=== PATIENT | female | born 1980 | race Caucasian/White ===

== ENCOUNTER 2016-11-02 11:29 | Emergency (ER) | payer BC, OTHER ==
[2016-11-02 11:49] VITALS: RESP 16
[2016-11-02] MEDS ORDERED: DIPH,PERTUS(ACELL)TETVAC-LF 0.5 ML VIAL IM ONE (12:11)
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
[2016-11-02 13:59] LABS: ALT 54 U/L (9-52); AST 29 U/L (14-36); Alkaline Phosphatase 63 U/L (38-126); Anion Gap 10 mmol/L; Blood Urea Nitrogen 11 mg/dL (7-17); Calcium 9.7 mg/dL (8.4-10.2); Carbon Dioxide 28 mmol/L (22-30); Chloride 107 mmol/L (98-107); Glucose 85 mg/dL (74-99); Non-African American GFR(MDRD) >60 (>60 ml/min/1.73 sqM); Potassium 4.1 mmol/L (3.5-5.1); Sodium 145 mmol/L (137-145); Total Bilirubin 0.6 mg/dL (0.2-1.3); Total Protein 7.2 g/dL (6.3-8.2)
[2016-11-02 14:23] VITALS: BP 117/56; PULSE 64; TEMP 98.2
[2016-11-02 15:45] LABS: Hepatitis C Virus IgG Index 0.02
[2016-11-02 15:52] LABS: Hepatitis B Surface Antibody POSITIVE (Negative); Hepatitis C Virus IgG Ab Negative (Negative)
[2016-11-03 13:51] LABS: HIV-1/HIV-2 Ab Screen NONREAC (NON REAC)
== END 2016-11-02 14:29 | disposition home or self-care (01) ==
LOC: EC 11:29
DX: S51.852A Open bite of left forearm, initial encounter (principal); E78.5 Hyperlipidemia, unspecified; F17.200 Nicotine dependence, unspecified, uncomplicated; Y04.1XXA Assault by human bite, initial encounter; Y99.0 Civilian activity done for income or pay; Z88.0 Allergy status to penicillin; Z79.899 Other long term (current) drug therapy; Z88.2 Allergy status to sulfonamides; Z23 Encounter for immunization
CPT/HCPCS: 36415; 80053; 86706; 86803; 87389; 90471; 90715; 99283

== ENCOUNTER → 2018-01-29 | Outpatient (CLI) | payer OTHER ==
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
== END | disposition home or self-care (01) ==
LOC: RADXRMAIN 17:08
PROVIDERS: ATTEND Emergency Medicine
DX: S60.221A Contusion of right hand, initial encounter (principal); S60.211A Contusion of right wrist, initial encounter

== ENCOUNTER → 2018-04-28 | Outpatient (CLI) | payer OTHER ==
--- NOTE | 2018-04-29 08:31 | CT ---
EXAMINATION TYPE: CT abdomen pelvis wo con DATE OF EXAM: 04/28/2018 COMPARISON: 11/06/2010 HISTORY: Abdominal pain with intermittent porphyria. Rectal bleeding. CT DLP: 329.8 mGycm Automated exposure control for dose reduction was used. TECHNIQUE: Helical acquisition of images was performed from the lung bases through the pelvis. FINDINGS: LUNG BASES: No significant abnormality is appreciated. LIVER/GB: No significant abnormality is appreciated. PANCREAS: Pancreas is of unremarkable unenhanced morphology without ductal dilatation. SPLEEN: No splenomegaly. ADRENALS: No nodularity or thickening. KIDNEYS: Kidneys are symmetric with no evidence of nephrolithiasis or hydronephrosis. No perinephric fat stranding. FREE AIR: No free air is visualized RETROPERITONEAL ADENOPATHY: No greater than 1 cm short axis lymph nodes are seen within the abdomen or pelvis. REPRODUCTIVE ORGANS: Uterus appears surgically absent. Previously seen right adnexal cystic mass is r esolved in the interim and likely related at that time to a physiologic cyst. URINARY BLADDER: No significant abnormality is seen. OSSEOUS STRUCTURES: Osseous structures are intact with a stable left hemipelvic bone island in ana rison to exam of 2010. BOWEL: No larger small bowel dilatation. Lack of oral contrast limits evaluation of the hollow visce ra. Moderate amount retained colonic stool is noted. Appendix appears surgically absent. OTHER: Abdominal aorta is of normal course and caliber. IMPRESSION: 1. No evidence of dilated bowel or bowel obstruction. Unremarkable unenhanced CT of the abdomen. Lack of oral contrast slightly limits evaluation of the bowel. Given the patient's complain of rectal ble eding colonoscopy could be performed if not recently performed. 2. Resolution of the previously seen cystic right adnexal lesion in comparison to the exam of 2010.
== END | disposition home or self-care (01) ==
LOC: EDSEX → MERGE 04-23 15:20 → RADCTMAIN 15:25
PROVIDERS: ATTEND Family Medicine
DX: K62.5 Hemorrhage of anus and rectum (principal); E80.21 Acute intermittent (hepatic) porphyria
CPT/HCPCS: 74176

== ENCOUNTER 2018-06-30 15:25 | Emergency (ER) | payer OTHER ==
[2018-06-30 15:51] VITALS: RESP 18
--- NOTE | 2018-06-30 16:44 | ED ---
Headache HPI - General Chief Complaint: Headache Stated Complaint: migraine/vomiting Time Seen by Provider: 06/30/18 16:26 Mode of arrival: ambulatory Limitations: no limitations - History of Present Illness Initial Comments: 29-year-old female with past medical history of chronic migraines and anxiety presenting today for chief complaint of migraine, nausea or vomiting 2 hours. Patient states that around 2 PM she began to notice she had a migraine starting. She states it was consistent with her past migraines. Throbbing frontal, 05/09. She denies this being the worst headache of her life. Patient states that since arrival to ER it actually has been getting better. Patient does admit to episode of emesis, however she states she often experiences the symptom with her migraines. Patient state that she did have a negative MRI for any aneurysms years ago. And a CT 2 months ago that was within normal limits. Patient states that she has been out of her Topamax that she takes for migraine prophylaxis for the past 2 days. Pt did state that she was had the flu about a week ago and a fever but denies recent fever, chills. Patient denies any speech or gait changes, difficulty swallowing, facial symmetry, paresthesias, numbness or tingling of the upper or lower extremities, muscle weakness of the upper or lower extremities. In addition pt denies any shortness of breath, chest pain, back pain, abdominal pain, numbness or tingling, dysuria or hematuria, constipation or diarrhea, headaches or visual changes, or any other complaints. Pt was brought to the ER by her mother. Upon arrival pt VS stable. - Related Data Home Medications Medication Instructions Recorded Confirmed Escitalopram Oxalate [Lexapro] 20 mg PO DAILY 11/02/16 06/30/18 Azithromycin [Zithromax Z-pack] See Taper PO DAILY 06/30/18 06/30/18 Ibuprofen [Motrin Ib] 800 mg PO Q6H 06/30/18 06/30/18 Topiramate [Topamax] 100 mg PO HS 06/30/18 06/30/18 buPROPion XL [Wellbutrin Xl] 150 mg PO HS 06/30/18 06/30/18 Previous Rx's Medication Instructions Recorded Topiramate [Topamax] 100 mg PO BID 3 Days #6 tab 06/30/18 Allergies Allergy/AdvReac Type Severity Reaction Status Date / Time Penicillins Allergy Rash/Hives Verified 06/30/18 16:20 Sulfa (Sulfonamide Allergy Rash/Hives Verified 06/30/18 16:20 Antibiotics) Review of Systems ROS Statement: Those systems with pertinent positive or pertinent negative responses have been documented in the HPI. ROS Other: All systems not noted in ROS Statement are negative. Constitutional: Denies: fever, chills Eyes: Denies: eye pain, vision change ENT: Denies: ear pain, throat pain Respiratory: Denies: cough, dyspnea, wheezes, hemoptysis Cardiovascular: Denies: chest pain, palpitations Gastrointestinal: Reports: nausea, vomiting. Denies: abdominal pain, diarrhea, constipation, hematemesis, melena, hematochezia Genitourinary: Denies: urgency, dysuria, frequency, hematuria Musculoskeletal: Denies: back pain Skin: Denies: rash Neurological: Reports: as per HPI, headache. Denies: weakness, numbness, paresthesias, confusion, abnormal gait, vertigo Past Medical History Past Medical History: Asthma, Hyperlipidemia Additional Past Medical History / Comment(s): perforin History of Any Multi-Drug Resistant Organisms: None Reported Past Surgical History: Adenoidectomy, Appendectomy, Breast Surgery, Hysterectomy , Orthopedic Surgery, Tonsillectomy Additional Past Surgical History / Comment(s): sinus surgery Past Psychological History: No Psychological Hx Reported Smoking Status: Current every day smoker Past Alcohol Use History: None Reported Past Drug Use History: None Reported General Exam - General Exam Comments Initial Comments: General: The patient is awake and alert, in no distress, and does not appear acutely ill. Eye: +3 pupils are equal, round and reactive to light, extra-ocular movements are intact. No nystagmus. There is normal conjunctiva bilaterally. No signs of icterus. Ears, nose, mouth and throat: There are moist mucous membranes and no oral lesions. Cardiovascular: There is a regular rate and rhythm. No murmur, rub or gallop is appreciated. Respiratory: Lungs are clear to auscultation, respirations are non-labored, breath sounds are equal. No wheezes, stridor, rales, or rhonchi. Musculoskeletal: Normal ROM, no tenderness. Strength 5/5. Sensation intact. Pulses equal bilaterally 2+. Neurological: A&O x 3. CN II-XII intact, memory intact to immediately, intermediate and retirement recall. Able to follow simple verbal. Able to name a common object (pen). High quality, labial (pa) and lingual (la) speech. Low quality posterior pharynx/larynx (ga) voice sounds. Able to express general knowledge (days in a week). No hemineglect or inattention noted. Light touch sensation present over the face, chest, abdomen, back, UE bilaterally, and LE bilaterally. Able to localize point during point localization b/l and extinction. No visible bulk atrophy, hypertrophy, fasciculations, or myoclonus of the UE or LE b/l. Full PROM in UE and LE b/l. Bilateral muscle strength 5/5 for the following muscles: deltoid, biceps, triceps, brachioradialis, wrist extensors/flexor, hip flexor, hip abductors/adductors, hamstrings, quadriceps, feet dorsiflexors/plantar flexors. Finger to nose, finger to the examiners finger, and heel to sung coordinated and accurate b/l. Coordinated and even demonstration of hand flip, finger to thumb, and toe tap b/l. (-) pronator drift. No nuchal rigidity. (-) Brudzinskis and Kernig signs Skin: Skin is warm and dry and no rashes or lesions are noted. Psychiatric: Cooperative, appropriate mood & affect, normal judgment. Limitations: no limitations Course Vital Signs 06/30/18 06/30/18 15:48 17:37 Temperature 98.1 F 97.6 F Pulse Rate 71 96 Respiratory 18 18 Rate Blood Pressure 114/67 130/75 O2 Sat by Pulse 100 100 Oximetry Medical Decision Making - Medical Decision Making Pt afebrile. Given PE and HX i feel at this time pt is experiencing chronic migraine. Pt has been out of her topomax for 2 days which she usually takes for ppx. There are no focal neurological deficits upon neurological exam. Imaging discussed at length with patient at this time pt states that she feels this is another one of her chronic migraines and that she would like to defer imaging today. I have low suspicion for acute intracranial process or meningitis. Pt given reglan, bendadryl and toradol. Pt experienced anxiety after medication administration most likely from reglan administration. Pt given 1mg xanax. Pt upon reevaluation stated that although the medications made her feeling anxious her headache was significantly better. Pt was requesting d/c. Given pt has history of migraines with no history of aneurysm, there are no focal deficits one examination and improvement of HENDRICKSON of migraine cocktail I am feel pt is stable for d/c with primary care f/u. Return parameters were discussed with patient. Patient's mother is driving her home. Patient is given a prescription of 6 tablets Topamax retaken twice daily as prescribed previously until primary care follow-up. Patient agrees with plan, patient was discharged in stable condition. Disposition Clinical Impression: Migraine Disposition: HOME SELF-CARE Condition: Good Instructions: Acute Headache (ED) Additional Instructions: Please use medication as discussed. Please follow-up with family doctor in the next 2 days. Please return to emergency room if the symptoms increase or worsen or for any other concerns. Prescriptions: Topiramate [Topamax] 100 mg PO BID 3 Days #6 tab Is patient prescribed a controlled substance at d/c from ED?: No Referrals: Michael Patrick DO [Primary Care Provider] - 1-2 days Time of Disposition: 17:19
[2018-06-30] MEDS ORDERED: diphenhydrAMINE 50 MG/ML 1 ML VIAL IVP STA (16:45)
[2018-06-30] MEDS ORDERED: KETOROLAC 30 MG/ML 1 ML VIAL IVP STA (16:45)
[2018-06-30] MEDS ORDERED: METOCLOPRAMIDE 5 MG/ML 2 ML VIAL IVP STA (16:45)
[2018-06-30] MEDS ORDERED: ALPRAZolam 1 MG TAB PO STA (17:19)
[2018-06-30 17:39] VITALS: BP 130/75; PULSE 96; TEMP 97.6
== END 2018-06-30 17:40 | disposition home or self-care (01) ==
LOC: EC 15:25
DX: G43.909 Migraine, unspecified, not intractable, without status migrainosus (principal); F41.9 Anxiety disorder, unspecified; F17.200 Nicotine dependence, unspecified, uncomplicated; Z79.899 Other long term (current) drug therapy; Z79.891 Long term (current) use of opiate analgesic; Z88.0 Allergy status to penicillin; Z88.2 Allergy status to sulfonamides
CPT/HCPCS: 99283; 96374; 96375 ×2; J1200; J2765; J1885

== ENCOUNTER → 2018-12-19 | Outpatient (CLI) | payer BC, OTHER ==
--- NOTE | 2018-12-20 16:48 | US ---
EXAMINATION TYPE: US pelvic complete DATE OF EXAM: 12/19/2018 COMPARISON: CT abdomen and pelvis April 28, 2018 CLINICAL HISTORY: R10.2 Pelvic Pain. History of hysterectomy 2009. TECHNIQUE: . Transabdominal sonographic images of the pelvis were acquired. Transvaginal sonographi c images were medically necessary to better assess the following anatomy: Date of LMP: EXAM MEASUREMENTS: Uterus: Surgically absent Endometrial Stripe: Surgically absent Right Ovary: 1.7 x 1.2 x 1.2 cm Left Ovary: 1.7 x 1.9 x 1.5 cm 1. Uterus: Surgically absent 2. Endometrium: Surgically absent 3. Right Ovary: wnl 4. Left Ovary: wnl 5. Bilateral Adnexa: wnl 6. Posterior cul-de-sac: wnl Uterus is surgically absent. No free fluid is seen in pelvic cul-de-sac. Both ovaries are seen and ar e symmetric small in size. No suspicious adnexal masses are noted. IMPRESSION: As above, no suspicious findings seen to account for patient's symptoms of pelvic pain.
== END ==
LOC: RADUSWWP 16:13
PROVIDERS: ATTEND Internal Medicine
DX: R10.2 Pelvic and perineal pain (principal)
CPT/HCPCS: 76856

== ENCOUNTER → 2019-10-27 | Outpatient (CLI) | payer BC, OTHER ==
[2019-10-28 00:34] LABS: Rheumatoid Factor, Qnt 8 IU/mL (0-15)
[2019-10-28 07:00] LABS: Anti-Smith Ab Interp NEGATIVE (NEGATIVE); DNA Double-Stranded NEGATIVE (NEGATIVE)
[2019-10-28 09:30] LABS: Angiotensin-1 Converting Enz. 30 U/L (8-52)
[2019-10-28 14:13] LABS: C-ANCA <1:20 Titer (<1:20)
== END | disposition home or self-care (01) ==
LOC: LABWHC1 17:17
PROVIDERS: ATTEND Psychiatry & Neurology Neurology
DX: G43.019 Migraine without aura, intractable, without status migrainosus (principal); R41.3 Other amnesia; R20.2 Paresthesia of skin; G40.209 Localization-related (focal) (partial) symptomatic epilepsy and epileptic syndromes with complex partial seizures, not intractable, without status epilepticus; E55.9 Vitamin D deficiency, unspecified
CPT/HCPCS: 36415; 82164; 82306; 82607; 84443; 86038; 86225; 86235; 86255; 86431; 86618

== ENCOUNTER → 2021-01-04 | Outpatient (CLI) | payer BC, OTHER ==
[2021-01-04 23:21] LABS: HCT 39.6 % (37.2-46.3); HGB 12.7 g/dL (12.0-15.0); MCH 29.1 pg (27.0-32.0); MCHC 32.1 g/dL (32.0-37.0); MCV 90.8 fL (80.0-97.0); Mean Platelet Volume 11.3 fL (9.5-12.2); Platelet Count 314 X 10*3/uL (140-440); RBC 4.36 X 10*6/uL (4.10-5.20); RDW 12.6 % (11.5-14.5); WBC 7.68 X 10*3/uL (4.50-10.00)
[2021-01-05 03:28] LABS: Albumin 4.4 g/dL (3.80-4.90); Albumin/Globulin Ratio 2.32 (1.60-3.17); Anion Gap 7.6 mmol/L (4.00-12.00); Calcium 9.1 mg/dL (8.7-10.3); Carbon Dioxide 23.4 mmol/L (21.6-31.8); Chol/HDL Ratio 4.8; Globulin 1.9 g/dL (1.6-3.3); LDL Cholesterol,Calculated 144.4 mg/dL (0.0-131.0); Non-African American GFR(CKD) 69.9 (60.0-200.0); Potassium 4.1 mmol/L (3.5-5.5); Total Bilirubin 0.3 mg/dL (0.2-1.2); Total Protein 6.3 g/dL (6.2-8.2); VLDL Calculation 41.6 mg/dL (5.00-40.00)
== END | disposition home or self-care (01) ==
LOC: LABWHC1 15:17
PROVIDERS: ATTEND Internal Medicine Clinical Cardiac Electrophysiology
DX: E78.5 Hyperlipidemia, unspecified (principal); R07.9 Chest pain, unspecified; R00.2 Palpitations
CPT/HCPCS: 36415; 80053; 80061; 84443; 85027

== ENCOUNTER → 2021-06-22 | Outpatient (CLI) | payer BC, OTHER | END | disposition home or self-care (01) | LOC: LABWHC1 15:45 | PROVIDERS: ATTEND Internal Medicine | DX: Z20.822 Contact with and (suspected) exposure to COVID-19 (principal) | CPT/HCPCS: U0003; C9803; U0005 ==

== ENCOUNTER → 2021-07-13 | Outpatient (CLI) | payer BC ==
--- NOTE | 2021-07-14 06:34 | CT ---
EXAMINATION TYPE: CT abdomen pelvis w con DATE OF EXAM: 07/13/2021 HISTORY: epigastric pain. Left kidney mass or recent abnormal ultrasound. CT DLP: 547.3mGycm Automated Exposure Control for Dose Reduction was Utilized. CONTRAST: CT scan of the abdomen and pelvis is performed with IV Contrast, patient injected with 100 mL of Isov ue 300. COMPARISON: CT abdomen and pelvis June 23, 2020 and older CTs FINDINGS: LUNG BASES: No significant abnormality is appreciated. LIVER/GB: No significant abnormality is appreciated. PANCREAS: No significant abnormality is seen. SPLEEN: No significant abnormality is seen. ADRENALS: No significant abnormality is seen. KIDNEYS: There is symmetric cortical medullary uptake and excretion with mild pyelocaliectasis bilate rally. No concerning solid or cystic renal mass in either kidney. No significant distal hydroureter. BOWEL: Oral contrast does not reach terminal ileum. No suspicious small or large bowel dilatation. Gonzalez rgical changes from appendectomy at base of cecum in the right pelvis. UTERUS/ADNEXA: Retroverted uterus. Scattered pelvic phleboliths. Remnant left ovary axial image 66-co ntaining 1.9 cm thin-walled cyst LYMPH NODES: No greater than 1cm abdominal or pelvic lymph nodes are appreciated. OSSEOUS STRUCTURES: No significant abnormality is seen. OTHER: No significant additional abnormality is seen. IMPRESSION: No suspicious solid or cystic renal mass. No new or acute findings are evident.
== END | disposition home or self-care (01) ==
LOC: RADCTMAIN 16:33
PROVIDERS: ATTEND Internal Medicine
DX: R10.13 Epigastric pain (principal)
CPT/HCPCS: 74177; Q9967

== ENCOUNTER → 2021-08-22 | Outpatient (CLI) | payer BC | LOC: LABWHC1 11:00 | PROVIDERS: ATTEND Internal Medicine | DX: Z20.822 Contact with and (suspected) exposure to COVID-19 (principal) | CPT/HCPCS: U0003; C9803; U0005 ==

== ENCOUNTER → 2022-02-07 | Outpatient (CLI) | payer BC, OTHER | END | disposition home or self-care (01) | LOC: LABWHC1 11:03 | PROVIDERS: ATTEND Internal Medicine | DX: Z20.822 Contact with and (suspected) exposure to COVID-19 (principal) | CPT/HCPCS: U0003; C9803; U0005 ==

== ENCOUNTER → 2022-06-01 | Outpatient (CLI) | payer BC, OTHER ==
--- NOTE | 2022-06-01 13:46 | US ---
EXAMINATION TYPE: US pelvis complete transvag DATE OF EXAM: 06/01/2022 COMPARISON: CT 07/13/2021 & US 12/19/2018 CLINICAL HISTORY: R102 PELVIC PERINEAL PAIN. hysterectomy. TECHNIQUE: Transvaginal (TV) and Transabdominal (TA) . Transabdominal sonographic images of the pel vis were acquired. Transvaginal sonographic images were medically necessary to better assess the fol lowing anatomy: ovaries Date of LMP: hysterectomy EXAM MEASUREMENTS: Uterus: Surgically absent Endometrial Stripe: Surgically absent Right Ovary: 2.5 x 1.6 x 2.4 cm Left Ovary: 1.5 x 1.3 x 2.1 cm 1. Uterus: Surgically absent 2. Endometrium: Surgically absent 3. Right Ovary: There is a 1.2 x 1.2 x 1.5 cm simple appearing cyst right ovary. Follow-up exam in 6 weeks is recommended. 4. Left Ovary: wnl 5. Bilateral Adnexa: wnl 6. Posterior cul-de-sac: no free fluid Urinary bladder is sonolucent. Posterior wall appears normal IMPRESSION: 1. Right ovarian cyst. Follow-up pelvic ultrasound 6 weeks is recommended.
--- NOTE | 2022-06-01 13:55 | XR ---
EXAMINATION TYPE: XR lumbosacral spine min 4V DATE OF EXAM: 06/01/2022 COMPARISON: 07/24/2017 HISTORY: Lumbosacral pain TECHNIQUE: 5 view lumbar spine FINDINGS: There are 5 lumbar-type vertebral bodies. Pedicles are intact. No spondylolytic defects are evident. Facets appear normal. Vertebral body alignment is normal. Disc heights are preserved. Verte bral body heights are preserved. IMPRESSION: 1. No acute osseous abnormality lumbar spine. 2. MRI could be performed for evaluation for soft tissues.
[2022-06-01 18:42] LABS: Basophils # (A) 0.06 X 10*3/uL (0.00-0.10); Basophils % (A) 0.8 %; Eosinophils # (A) 0.12 X 10*3/uL (0.04-0.35); Eosinophils % (A) 1.6 %; HCT 42.2 % (37.2-46.3); HGB 13.7 g/dL (12.0-15.0); Immature Grans, Automated 0.4 %; Lymphocytes # (A) 1.82 X 10*3/uL (0.90-5.00); Lymphocytes % (A) 24.4 %; MCH 29.6 pg (27.0-32.0); MCHC 32.5 g/dL (32.0-37.0); MCV 91.1 fL (80.0-97.0); Mean Platelet Volume 11.3 fL (9.5-12.2); Monocytes # (A) 0.45 X 10*3/uL (0.20-1.00); NRBC Per 100 WBC 0 /100 WBCS (0.0-0.0); Neutrophils # (A) 4.98 X 10*3/uL (1.80-7.70); Neutrophils % (A) 66.8 %; Platelet Count 341 X 10*3/uL (140-440); RBC 4.63 X 10*6/uL (4.10-5.20); RDW 12.5 % (11.5-14.5); WBC 7.46 X 10*3/uL (4.50-10.00)
[2022-06-01 19:29] LABS: ALT 22 U/L (8-44); AST 20 U/L (13-35); African American GFR (CKD) 80.5 (60.0-200.0); Albumin 4.7 g/dL (3.8-4.9); Albumin/Globulin Ratio 2.24 (1.60-3.17); Alkaline Phosphatase 81 U/L (41-126); Blood Urea Nitrogen 9.9 mg/dL (9.0-27.0); Calcium 9.4 mg/dL (8.7-10.3); Carbon Dioxide 26.2 mmol/L (20.0-27.5); Chloride 107 mmol/L (96-109); Chol/HDL Ratio 6.13 Ratio; Globulin 2.1 g/dL (1.6-3.3); Glucose 91 mg/dL (70-110); LDL Cholesterol,Calculated 184.1 mg/dL (0.0-131.0); Non-African American GFR(CKD) 69.4 (60.0-200.0); Potassium 4.8 mmol/L (3.5-5.5); Sodium 140 mmol/L (135-145); Total Protein 6.8 g/dL (6.2-8.2)
== END | disposition home or self-care (01) ==
LOC: RADUSWWP 10:32
PROVIDERS: ATTEND Internal Medicine
DX: N83.201 Unspecified ovarian cyst, right side (principal); G54.4 Lumbosacral root disorders, not elsewhere classified; K21.9 Gastro-esophageal reflux disease without esophagitis; R53.82 Chronic fatigue, unspecified; R73.9 Hyperglycemia, unspecified
CPT/HCPCS: 72110; 76830; 76856; 80053; 80061; 84443; 85025

== ENCOUNTER 2022-06-15 15:02 | Emergency (ER) | payer BC, OTHER ==
[2022-06-15 15:34] VITALS: TEMP 98.1
[2022-06-15 16:20] LABS: Basophils # (A) 0.1 k/uL (0-0.2); Basophils % (A) 1 %; Eosinophils # (A) 0.2 k/uL (0-0.7); Eosinophils % (A) 2 %; HCT 44.1 % (34.0-46.0); HGB 14.2 gm/dL (11.4-16.0); Lymphocytes # (A) 2.4 k/uL (1.0-4.8); Lymphocytes % (A) 28 %; MCHC 32.1 g/dL (31.0-37.0); MCV 90.2 fL (80.0-100.0); Mean Platelet Volume 7.9; Monocytes # (A) 0.4 k/uL (0-1.0); Monocytes % (A) 5 %; Neutrophils # (A) 5.4 k/uL (1.3-7.7); Neutrophils % (A) 62 %; Platelet Count 325 k/uL (150-450); RBC 4.89 m/uL (3.80-5.40); RDW 12.4 % (11.5-15.5); WBC 8.7 k/uL (3.8-10.6)
[2022-06-15 16:28] LABS: Calcium 9.9 mg/dL (8.4-10.2); Potassium 4.3 mmol/L (3.5-5.1); Total Bilirubin 0.4 mg/dL (0.2-1.3); Total Protein 7.7 g/dL (6.3-8.2)
[2022-06-15 16:39] LABS: Appearance,Urine Clear (Clear); Bilirubin,Urine Negative (Negative); Blood,Urine Negative (Negative); Color,Urine Yellow; Glucose,Urine (UA) Negative (Negative); Ketones,Urine Negative (Negative); Leukocyte Esterase,Urine Negative (Negative); Nitrite,Urine Negative (Negative); PH, Urine 5.5 (5.0-8.0); Protein,Urine Negative (Negative); Specific Gravity,Urine 1.014 (1.001-1.035); Urobilinogen,Urine <2.0 mg/dL (<2.0)
[2022-06-15] MEDS ORDERED: KETOROLAC 15 MG/ML 1 ML VIAL IVP STA (17:23)
[2022-06-15] MEDS ORDERED: SODIUM CHLORIDE 0.9% 1,000 ML IV STA (17:23)
[2022-06-15] MEDS ORDERED: ONDANSETRON 4 MG/2 ML VIAL IVP STA (17:23)
[2022-06-15] MEDS ORDERED: FAMOTIDINE 20 MG/2 ML VIAL IV STA (17:24)
[2022-06-15 17:55] LABS: Basophils % (A) 1 %; Eosinophils # (A) 0.1 k/uL (0-0.7); Eosinophils % (A) 2 %; HCT 42.2 % (34.0-46.0); HGB 14.3 gm/dL (11.4-16.0); Lymphocytes # (A) 2.2 k/uL (1.0-4.8); Lymphocytes % (A) 24 %; MCH 30.6 pg (25.0-35.0); MCHC 33.8 g/dL (31.0-37.0); MCV 90.5 fL (80.0-100.0); Monocytes # (A) 0.4 k/uL (0-1.0); Monocytes % (A) 4 %; Neutrophils % (A) 67 %; Platelet Count 320 k/uL (150-450); RBC 4.67 m/uL (3.80-5.40); RDW 12.6 % (11.5-15.5); WBC 8.9 k/uL (3.8-10.6)
--- NOTE | 2022-06-15 17:56 | ED ---
General Adult HPI - General Chief complaint: Abdominal Pain Stated complaint: gallbladder Time Seen by Provider: 06/15/22 16:46 Source: patient, RN notes reviewed Mode of arrival: ambulatory Limitations: no limitations - History of Present Illness Initial comments: Patient is a pleasant 41-year-old female presenting to the emergency Department with right upper abdominal pain. Patient has had symptoms over the past year or 2 however significantly worse over the past week. Symptoms worsen with oral food intake. Patient has occasional nausea. No vomiting. No constipation. Occasional loose stools. Discomfort is mostly right upper abdomen. - Related Data Home Medications Medication Instructions Recorded Confirmed Topiramate [Topamax] 100 mg PO HS 06/30/18 06/23/20 Aimovig (Unknown Strength) 1 dose SQ Q28D 06/23/20 06/23/20 DULoxetine HCL [Cymbalta] 60 mg PO HS 06/23/20 06/23/20 Eletriptan [Relpax] 40 mg PO DAILY PRN 06/23/20 06/23/20 Gabapentin [Neurontin] 100 mg PO HS 06/23/20 06/23/20 Ibuprofen [Motrin Ib] 400 mg PO ONCE PRN 06/23/20 06/23/20 Ondansetron Odt [Zofran ODT] 4 mg PO DAILY PRN 06/23/20 06/23/20 Allergies Allergy/AdvReac Type Severity Reaction Status Date / Time Penicillins Allergy Rash/Hives Verified 06/23/20 20:08 Sulfa (Sulfonamide Allergy Rash/Hives Verified 06/23/20 20:08 Antibiotics) codeine AdvReac Vomiting Verified 06/23/20 22:05 Review of Systems ROS Statement: Those systems with pertinent positive or pertinent negative responses have been documented in the HPI. ROS Other: All systems not noted in ROS Statement are negative. Constitutional: Denies: fever Eyes: Denies: eye pain ENT: Denies: ear pain Respiratory: Denies: cough Cardiovascular: Denies: chest pain Endocrine: Denies: fatigue Gastrointestinal: Reports: as per HPI, abdominal pain, nausea. Denies: vomiting Genitourinary: Denies: dysuria Musculoskeletal: Denies: back pain Skin: Denies: rash Neurological: Denies: weakness Past Medical History Past Medical History: Asthma, Hyperlipidemia Additional Past Medical History / Comment(s): perforin, migraines History of Any Multi-Drug Resistant Organisms: None Reported Past Surgical History: Adenoidectomy, Appendectomy, Breast Surgery, Hys terectomy, Orthopedic Surgery, Tonsillectomy Additional Past Surgical History / Comment(s): sinus surgery Past Psychological History: Anxiety Smoking Status: Never smoker Past Alcohol Use History: None Reported Past Drug Use History: None Reported General Exam Limitations: no limitations General appearance: alert, in no apparent distress Head exam: Present: normocephalic Eye exam: Present: normal appearance Neck exam: Present: normal inspection Respiratory exam: Present: normal lung sounds bilaterally Cardiovascular Exam: Present: regular rate, normal rhythm Expanded Peripheral pulses: 2+: Posterior Tibialis (R), Posterior Tibialis (L) GI/Abdominal exam: Present: soft, tenderness (Mild to moderate tenderness right upper quadrant). Absent: distended, guarding, rebound, rigid Extremities exam: Present: normal inspection. Absent: pedal edema, calf tenderness Neurological exam: Present: alert Psychiatric exam: Present: normal affect, normal mood Skin exam: Present: normal color Course Vital Signs 06/15/22 06/15/22 06/15/22 15:29 17:18 18:36 Temperature 98.1 F Pulse Rate 76 63 65 Respiratory 16 18 18 Rate Blood Pressure 123/81 122/80 O2 Sat by Pulse 99 100 100 Oximetry Medical Decision Making - Medical Decision Making Patient reevaluated and resting comfortably in bed. Patient feeling better with Dilaudid. Patient updated on results and plan. Patient states she did have previous HIDA scan that was reported as negative however that was around 5 years ago. Patient advised to have repeat HIDA scan and follow-up with GI and/or surgery. Patient requests Dr. Bhatia. - Lab Data Result diagrams: 06/15/22 17:51 06/15/22 17:51 Lab Results 06/15/22 06/15/22 06/15/22 Range/Units 16:04 16:04 16:04 WBC 8.7 (3.8-10.6) k/uL RBC 4.89 (3.80-5.40) m/uL Hgb 14.2 (11.4-16.0) gm/dL Hct 44.1 (34.0-46.0) % MCV 90.2 (80.0-100.0) fL MCH 29.0 (25.0-35.0) pg MCHC 32.1 (31.0-37.0) g/dL RDW 12.4 (11.5-15.5) % Plt Count 325 (150-450) k/uL MPV 7.9 Neutrophils % 62 % Lymphocytes % 28 % Monocytes % 5 % Eosinophils % 2 % Basophils % 1 % Neutrophils # 5.4 (1.3-7.7) k/uL Lymphocytes # 2.4 (1.0-4.8) k/uL Monocytes # 0.4 (0-1.0) k/uL Eosinophils # 0.2 (0-0.7) k/uL Basophils # 0.1 (0-0.2) k/uL PT (9.0-12.0) sec INR (<1.2) APTT (22.0-30.0) sec Sodium 141 (137-145) mmol/L Potassium 4.3 (3.5-5.1) mmol/L Chloride 108 H (98-107) mmol/L Carbon Dioxide 18 L (22-30) mmol/L Anion Gap 15 mmol/L BUN 10 (7-17) mg/dL Creatinine 0.97 (0.52-1.04) mg/dL Est GFR (CKD-EPI)AfAm 84 (>60 ml/min/1.73 sqM) Est GFR (CKD-EPI)NonAf 73 (>60 ml/min/1.73 sqM) Glucose 85 (74-99) mg/dL Calcium 9.9 (8.4-10.2) mg/dL Total Bilirubin 0.4 (0.2-1.3) mg/dL AST 24 (14-36) U/L ALT 19 (4-34) U/L Alkaline Phosphatase 92 (38-126) U/L Total Protein 7.7 (6.3-8.2) g/dL Albumin 5.0 (3.5-5.0) g/dL Amylase 61 (30-110) U/L Lipase 81 (23-300) U/L Urine Color Yellow Urine Appearance Clear (Clear) Urine pH 5.5 (5.0-8.0) Ur Specific [place] 1.014 (1.001-1.035) Urine Protein Negative (Negative) Urine Glucose (UA) Negative (Negative) Urine Ketones Negative (Negative) Urine Blood Negative (Negative) Urine Nitrite Negative (Negative) Urine Bilirubin Negative (Negative) Urine Urobilinogen <2.0 (<2.0) mg/dL Ur Leukocyte Esterase Negative (Negative) 06/15/22 06/15/22 06/15/22 Range/Units 17:51 17:51 17:51 WBC 8.9 (3.8-10.6) k/uL RBC 4.67 (3.80-5.40) m/uL Hgb 14.3 (11.4-16.0) gm/dL Hct 42.2 (34.0-46.0) % MCV 90.5 (80.0-100.0) fL MCH 30.6 (25.0-35.0) pg MCHC 33.8 (31.0-37.0) g/dL RDW 12.6 (11.5-15.5) % Plt Count 320 (150-450) k/uL MPV 8.0 Neutrophils % 67 % Lymphocytes % 24 % Monocytes % 4 % Eosinophils % 2 % Basophils % 1 % Neutrophils # 6.0 (1.3-7.7) k/uL Lymphocytes # 2.2 (1.0-4.8) k/uL Monocytes # 0.4 (0-1.0) k/uL Eosinophils # 0.1 (0-0.7) k/uL Basophils # 0.0 (0-0.2) k/uL PT 10.0 (9.0-12.0) sec INR 0.9 (<1.2) APTT 24.3 (22.0-30.0) sec Sodium 139 (137-145) mmol/L Potassium 4.3 (3.5-5.1) mmol/L Chloride 108 H (98-107) mmol/L Carbon Dioxide 19 L (22-30) mmol/L Anion Gap 12 mmol/L BUN 11 (7-17) mg/dL Creatinine 0.99 (0.52-1.04) mg/dL Est GFR (CKD-EPI)AfAm 82 (>60 ml/min/1.73 sqM) Est GFR (CKD-EPI)NonAf 71 (>60 ml/min/1.73 sqM) Glucose 96 (74-99) mg/dL Calcium 9.5 (8.4-10.2) mg/dL Total Bilirubin 0.4 (0.2-1.3) mg/dL AST 26 (14-36) U/L ALT 17 (4-34) U/L Alkaline Phosphatase 89 (38-126) U/L Total Protein 7.2 (6.3-8.2) g/dL Albumin 4.6 (3.5-5.0) g/dL Amylase 55 (30-110) U/L Lipase 73 (23-300) U/L Urine Color Urine Appearance (Clear) Urine pH (5.0-8.0) Ur Specific [place] (1.001-1.035) Urine Protein (Negative) Urine Glucose (UA) (Negative) Urine Ketones (Negative) Urine Blood (Negative) Urine Nitrite (Negative) Urine Bilirubin (Negative) Urine Urobilinogen (<2.0) mg/dL Ur Leukocyte Esterase (Negative) - Radiology Data Radiology results: report reviewed (Ultrasound does not reveal acute process.), image reviewed (Abdominal x-ray reveals no acute abdomen) Disposition Clinical Impression: Abdominal pain Disposition: HOME SELF-CARE Condition: Stable Instructions (If sedation given, give patient instructions): Abdominal Pain (ED) Additional Instructions: Please do follow-up with primary care physician and surgeon or GI doctor in the being the week. Return for increased pain, vomiting, fever, worsening or changing symptoms or any other concerns. Consider HIDA scan. Resume your omeprazole Is patient prescribed a controlled substance at d/c from ED?: No Referrals: Bonilla Lugo MD [Primary Care Provider] - 1-2 days Stephanie Sifuentes MD [STAFF PHYSICIAN] - 1-2 days Lory Jain MD [STAFF PHYSICIAN] - 1-2 days Richmond Rider MD [Medical Doctor] - 1-2 days Time of Disposition: 20:20
[2022-06-15 18:06] LABS: INR 0.9 (<1.2)
[2022-06-15 18:07] LABS: Partial Thromboplastin Time 24.3 sec (22.0-30.0)
[2022-06-15 18:09] LABS: Albumin 4.6 g/dL (3.5-5.0); Calcium 9.5 mg/dL (8.4-10.2); Potassium 4.3 mmol/L (3.5-5.1); Total Bilirubin 0.4 mg/dL (0.2-1.3); Total Protein 7.2 g/dL (6.3-8.2)
--- NOTE | 2022-06-15 18:10 | XR ---
EXAMINATION TYPE: XR KUB DATE OF EXAM: 06/15/2022 COMPARISON: NONE HISTORY: Right-sided abdominal pain TECHNIQUE: 2 views upright FINDINGS: There is no sign of intestinal obstruction or pneumoperitoneum. Fecal pattern is normal. No evidence of a mass. Lung bases are clear. No pathologic calcifications over the kidneys. IMPRESSION: Nonacute abdomen.
--- NOTE | 2022-06-15 19:14 | US ---
EXAMINATION TYPE: US gallbladder DATE OF EXAM: 06/15/2022 COMPARISON: CT CLINICAL HISTORY: ruq pain. TECHNIQUE: Multiple sonographic images of the right upper quadrant are obtained. FINDINGS: EXAM MEASUREMENTS: Liver Length: 12.9 cm Gallbladder Wall: 0.2 cm CBD: 0.2 cm Right Kidney: 8.7 x 3.9 x 4.4 cm SHOE STITCHER NOTES: Pancreas: Tail obscured by overlying bowel gas Liver: wnl Gallbladder: No stones seen Evidence for sonographic Patel's sign: no CBD: wnl Right Kidney: No hydronephrosis or masses seen, measures small IMPRESSION: No gallstones or dilated ducts. The right kidney is small but no cortical atrophy seen. No hydronephr osis.
[2022-06-15] MEDS ORDERED: HYDROmorphone 0.5 MG/0.5 ML SYRINGE IVP STA ×2 (19:23→20:53)
[2022-06-15] MEDS ORDERED: traMADol 50 MG STARTER PACK 3 TAB BTL PO STA (20:19)
--- NOTE | 2022-06-15 21:47 | CT ---
EXAMINATION TYPE: CT abdomen pelvis w con DATE OF EXAM: 06/15/2022 COMPARISON: 07/13/2021 HISTORY: right sided flank pain CT DLP: 779.7 mGycm Automated exposure control for dose reduction was used. CONTRAST: Performed with IV Contrast, patient injected with 100ml mL of Isovue 300. Images obtained from the diaphragm to the floor of the pelvis with the IV contrast. The lung bases are clear. No pleural effusion. Heart size is normal. No pericardial effusion. Liver s pleen and stomach pancreas and gallbladder appear intact. The bile ducts are not dilated. There is no adrenal mass. Kidneys show satisfactory contrast opacification. No hydronephrosis. Ureter s are not dilated. Bladder distends smoothly. There is small amount of low-density fluid in the pelvi s. There is apparent hysterectomy. No inguinal hernia. No pelvic mass. Appendix not seen. No sign of thickened appendix. There is 2 cm cyst in the pelvis on the right side that is likely ovarian cyst. N o mesenteric edema. No free air. No bowel obstruction. The lumbar vertebra appear intact. No compression fracture. Posterior elements are intact. The bony p steve is intact. IMPRESSION: Small amount of low-density free fluid in the pelvis appears new compared to old exam. No bowel obstr uction. Right ovarian cyst. Appendix not seen.
[2022-06-15 22:52] VITALS: BP 136/84; PULSE 75; RESP 15
== END 2022-06-15 23:02 | disposition home or self-care (01) ==
LOC: EC 15:02
DX: R10.11 Right upper quadrant pain (principal); Z88.0 Allergy status to penicillin; Z88.2 Allergy status to sulfonamides; Z88.5 Allergy status to narcotic agent; J45.909 Unspecified asthma, uncomplicated; E78.5 Hyperlipidemia, unspecified
CPT/HCPCS: 36415; 80053; 82150; 83690; 85025; 85610; 85730; 81003; 74018; 76705; 74177; 99284; 96374; 96375; 96376; 96361; J2405; J1885; J1170; Q9967

== ENCOUNTER → 2022-07-02 | Outpatient (CLI) | payer BC, OTHER ==
--- NOTE | 2022-07-02 15:59 | NM ---
EXAMINATION TYPE: NM hepatobiliary w EF DATE OF EXAM: 07/02/2022 COMPARISON: CT abdomen and pelvis June 15, 2022 HISTORY: Right upper quadrant pain. TECHNIQUE: After the intravenous administration of 4 mCi Tc 99m Mebrofenin hepatobiliary scintigraphy is performed. Immediate images post injection. FINDINGS: There is satisfactory initial accumulation of tracer by the liver. The gallbladder is visualized wit hin 15 minutes. The small bowel activity is noted within 25 minutes. At one hour 8 ounces of oral e nsure plus is given to mimic CCK and gallbladder ejection fraction is calculated at 93 %, not deviate d from the normal range. Therefore there is no scintigraphic evidence of cystic or common bile duct obstruction to suggest acute cholecystitis or gallbladder hypokinesia. IMPRESSION: As above.
== END | disposition home or self-care (01) ==
LOC: RADNMMAIN 12:57
PROVIDERS: ATTEND Internal Medicine
DX: R10.11 Right upper quadrant pain (principal)
CPT/HCPCS: 78226; A9537

== ENCOUNTER → 2022-07-16 | Outpatient (CLI) | payer BC, OTHER ==
--- NOTE | 2022-07-16 15:13 | US ---
EXAMINATION TYPE: US pelvic complete DATE OF EXAM: 07/16/2022 COMPARISON: Pelvic ultrasound 06/01/2022, CT abdomen pelvis 06/15/2022 CLINICAL HISTORY: N83.291 OTHER OVARIAN CYST, RIGHT SIDE. Follow up right ovarian cyst. Uterus surgi kaden absent. TECHNIQUE: Transabdominal (TA). Transabdominal sonographic images of the pelvis were acquired. Date of LMP: Unknown EXAM MEASUREMENTS: Right Ovary: 2.4 x 1.4 x 1.5 cm Left Ovary: 2.7 x 2.1 x 1.4 cm 1. Uterus: Surgically absent 2. Endometrium: Surgically absent 3. Right Ovary: Follicle is seen measuring up to 0.6 cm which is decreased in size from prior examin ation when it measured 1.5 cm. 4. Left Ovary: dominant follicle= 2.0 x 2.0 x 1.3 cm 5. Bilateral Adnexa: wnl 6. Posterior cul-de-sac: no free fluid IMPRESSION: 1. No acute pelvic process. 2. Bilateral follicular cysts with decrease in size of previously seen right follicular cyst 3. Postsurgical changes from hysterectomy.
== END | disposition home or self-care (01) ==
LOC: RADUSWWP 14:25
PROVIDERS: ATTEND Internal Medicine
DX: N83.291 Other ovarian cyst, right side (principal); N83.292 Other ovarian cyst, left side; Z90.710 Acquired absence of both cervix and uterus
CPT/HCPCS: 76856

== ENCOUNTER → 2022-12-26 | Outpatient (CLI) | payer BC, OTHER ==
[2022-12-26 14:25] LABS: Basophils # (A) 0.06 X 10*3/uL (0.00-0.10); Basophils % (A) 0.7 %; Eosinophils # (A) 0.18 X 10*3/uL (0.04-0.35); HGB 14.1 g/dL (12.0-15.0); Immature Grans, Automated 0.3 %; Lymphocytes % (A) 28.4 %; MCH 29.7 pg (27.0-32.0); MCHC 32.8 g/dL (32.0-37.0); MCV 90.5 fL (80.0-97.0); Mean Platelet Volume 11.5 fL (9.5-12.2); Monocytes % (A) 5.7 %; NRBC Per 100 WBC 0 /100 WBCS (0.0-0.0); Neutrophils # (A) 5.52 X 10*3/uL (1.80-7.70); Neutrophils % (A) 62.9 %; Platelet Count 321 X 10*3/uL (140-440); RBC 4.75 X 10*6/uL (4.10-5.20); RDW 12.1 % (11.5-14.5); WBC 8.79 X 10*3/uL (4.50-10.00)
[2022-12-26 16:06] LABS: ALT 48 U/L (8-44); AST 25 U/L (13-35); Albumin 4.6 g/dL (3.8-4.9); Alkaline Phosphatase 94 U/L (41-126); BUN/Creat Ratio 12.39 Ratio (12.00-20.00); Blood Urea Nitrogen 13.5 mg/dL (9.0-27.0); Calcium 9.4 mg/dL (8.7-10.3); Carbon Dioxide 18.8 mmol/L (20.0-27.5); Chloride 110 mmol/L (96-109); Chol/HDL Ratio 5.42 Ratio; Globulin 2.3 g/dL (1.6-3.3); Glucose 116 mg/dL (70-110); LDL Cholesterol,Calculated 158.9 mg/dL (0.0-131.0); Non-African American GFR(CKD) 62.1 (60.0-200.0); Potassium 4.5 mmol/L (3.5-5.5); Sodium 141 mmol/L (135-145); Total Protein 6.9 g/dL (6.2-8.2)
== END | disposition home or self-care (01) ==
LOC: LABWHC1 10:36
PROVIDERS: ATTEND Internal Medicine
DX: Z00.01 Encounter for general adult medical examination with abnormal findings (principal); Z13.220 Encounter for screening for lipoid disorders; E55.9 Vitamin D deficiency, unspecified; R53.82 Chronic fatigue, unspecified
CPT/HCPCS: 36415; 80053; 80061; 82306; 84443; 85025

== ENCOUNTER → 2023-09-09 | Outpatient (CLI) | payer BC, OTHER ==
--- NOTE | 2023-09-10 21:20 | MM ---
Reason for Exam: Screening (asymptomatic). Last mammogram was performed 7 year(s) and 4 month(s) ago. Patient History: Menarche at age 10. First Full-Term at age 18. Hysterectomy at age 32. Patient has history of breast feeding. Patient used Hormonal Contraceptives for 2 years. 03/2010, Benign Excisional Biopsy on the right side. Paternal aunt had breast cancer, age 30. Risk Values: Merary 5 year model risk: 0.9%. NCI Lifetime model risk: 9.5%. Prior Study Comparison: 02/24/2010 Bilateral Diagnostic Mammogram, [facility]. 05/28/2011 Bilateral Diagnostic Mammogram, [facility]. 05/10/2016 Bilateral Diagnostic Mammogram, [facility]. Tissue Density: The breast tissue is heterogeneously dense. This may lower the sensitivity of mammography. Findings: Analyzed By CAD. There is no suspicious group of microcalcifications or new suspicious mass in either breast. Overall Assessment: Negative, BI-RAD 1 Management: Screening Mammogram of both breasts in 1 year. . Patient should continue monthly self-breast exams. A clinical breast exam by your physician is recommended on an annual basis. This exam should not preclude additional follow-up of suspicious palpable abnormalities. Note on Merary scores and lifetime risk: 1. A Merary score greater than 3% is considered moderate risk. If this is the case, consider specialist referral to assess eligibility for a risk reducing agent. 2. If overall lifetime risk for the development of breast cancer is 20% or higher, the patient may qualify for future screening with alternating mammogram and breast MRI. Electronically signed and approved by: Francie Smith M.D. Radiologist
== END | disposition home or self-care (01) ==
LOC: RADMAMWWP 15:20
PROVIDERS: ATTEND Internal Medicine
DX: Z12.31 Encounter for screening mammogram for malignant neoplasm of breast (principal); Z80.3 Family history of malignant neoplasm of breast
CPT/HCPCS: 77063; 77067

== ENCOUNTER → 2024-02-15 | Outpatient (CLI) | payer BC, OTHER ==
[2024-02-15 13:14] LABS: Basophils # (A) 0.08 X 10*3/uL (0.00-0.10); Eosinophils # (A) 0.22 X 10*3/uL (0.04-0.35); Eosinophils % (A) 2.9 %; HCT 40.6 % (37.2-46.3); HGB 13.5 g/dL (12.0-15.0); Lymphocytes # (A) 1.92 X 10*3/uL (0.90-5.00); MCH 30.3 pg (27.0-32.0); MCHC 33.3 g/dL (32.0-37.0); Mean Platelet Volume 10.6 FL (9.5-12.2); Monocytes # (A) 0.45 X 10*3/uL (0.20-1.00); Monocytes % (A) 5.9 %; NRBC Per 100 WBC 0 X 10*3/uL (0.00-0.01); Neutrophils # (A) 4.98 X 10*3/uL (1.80-7.70); Neutrophils % (A) 64.8 %; Platelet Count 339 X 10*3/uL (140-440); RBC 4.46 X 10*6/uL (4.10-5.20); RDW 12.5 % (11.5-14.5); WBC 7.68 X 10*3/uL (4.50-10.00)
[2024-02-15 14:02] LABS: ALT 18 U/L (8-44); AST 16 U/L (13-35); Albumin 4.4 g/dL (3.8-4.9); Alkaline Phosphatase 68 U/L (41-126); Blood Urea Nitrogen 13.6 mg/dL (9.0-27.0); Calcium 9.5 mg/dL (8.7-10.3); Carbon Dioxide 24.6 mmol/L (21.6-31.8); Chloride 107 mmol/L (96-109); Chol/HDL Ratio 4.97 Ratio; Globulin 2.2 g/dL (1.6-3.3); Glucose 93 mg/dL (70-110); LDL Cholesterol,Calculated 146.5 mg/dL (0.0-131.0); Potassium 4.2 mmol/L (3.5-5.5); Rheumatoid Factor, Qnt <15 IU/mL (0-15); Sodium 141 mmol/L (135-145); Total Bilirubin 0.3 mg/dL (0.3-1.2); Total Protein 6.6 g/dL (6.2-8.2)
== END | disposition home or self-care (01) ==
LOC: LABWHC1 10:04
PROVIDERS: ATTEND Internal Medicine
DX: Z00.01 Encounter for general adult medical examination with abnormal findings (principal); Z13.220 Encounter for screening for lipoid disorders; M65.9 Synovitis and tenosynovitis, unspecified; E55.9 Vitamin D deficiency, unspecified; R53.82 Chronic fatigue, unspecified
CPT/HCPCS: 36415; 80053; 80061; 82306; 84443; 85025; 86431

== ENCOUNTER → 2025-02-04 | Outpatient (CLI) | payer BC ==
--- NOTE | 2025-02-04 09:17 | US ---
EXAMINATION TYPE: US abdomen complete DATE OF EXAM: 02/04/2025 COMPARISON: CT abdomen and pelvis 06/15/2022, gallbladder ultrasound 06/15/2022 CLINICAL INDICATION: Female, 44 years old with history of R10.9 UNSPEV ABD PAIN; Pt states ABD pain u pper ABD that radiates to back, worsening the last week and a half TECHNIQUE: Grayscale and color Doppler imaging of the abdomen was performed. FINDINGS: EXAM MEASUREMENTS: Liver Length: 14.2 cm Gallbladder Wall: 0.2 cm CBD: 0.4 cm, color Doppler imaging was utilized to isolate the common bile duct for measurement. Spleen: 11.1 cm Right Kidney: 9.1 x 3.9 x 4.4 cm Left Kidney: 10.2 x 3.8 x 4.5 cm VISUAL JOURNALIST NOTES: Pancreas: 3mm panc duct visualized, otherwise appeared wnl Liver: Possible small hypoechoic lesion left medial lobe ?visualized on prior CT, otherwise appeared wnl Gallbladder: Lumen clear, wall not thickened Evidence for sonographic Patel's sign: Yes CBD: wnl Spleen: wnl Right Kidney: wnl, No hydronephrosis, calculi or masses seen, lower pole gassed out Left Kidney: wnl, No hydronephrosis, prominent column of [place] Upper IVC: wnl Abd Aorta: wnl The visualized portions of the pancreas unremarkable. Noncirrhotic morphology. Small hypoechoic lesio n within the left medial lobe corresponding to previously seen cyst. Gallbladder demonstrates no ston es, wall thickening or surrounding fluid. Reported positive sonographic Patel's sign. Common bile du ct is within normal limits. Spleen is unremarkable. Both kidneys demonstrate no hydronephrosis or sha dowing calculus. No renal solid mass. Prominent left renal column of Dominguez as seen on CT. The visual ized portions of the upper IVC and abdominal aorta are within normal limits. IMPRESSION: No ultrasound evidence for acute process however reported positive sonographic Patel sign. No ultras ound evidence for acute cholecystitis. If there is continued clinical concern, consider further evalu ation with nuclear medicine HIDA scan. [facility], , 02/04/2025 9:14 AM
== END | disposition home or self-care (01) ==
LOC: RADUSWWP 08:32
PROVIDERS: ATTEND Internal Medicine
DX: R10.9 Unspecified abdominal pain (principal)
CPT/HCPCS: 76700

== ENCOUNTER 2025-02-09 16:34 | Emergency (ER) | payer BC ==
[2025-02-09 16:42] VITALS: TEMP 98
[2025-02-09 17:44] LABS: Basophils # (A) 0.06 10*3/uL (0.00-0.10); Basophils % (A) 0.8 %; Eosinophils # (A) 0.27 10*3/uL (0.04-0.35); Eosinophils % (A) 3.6 %; HCT 39.4 % (37.2-46.3); HGB 13.7 g/dL (12.0-15.0); Lymphocytes # (A) 1.65 10*3/uL (0.90-5.00); Lymphocytes % (A) 21.7 %; MCHC 34.8 g/dL (32.0-37.0); MCV 89.1 fL (80.0-97.0); Mean Platelet Volume 10.4 fL (9.5-12.2); Monocytes # (A) 0.44 10*3/uL (0.20-1.00); Monocytes % (A) 5.8 %; Neutrophils # (A) 5.16 10*3/uL (1.80-7.70); Neutrophils % (A) 67.8 %; Platelet Count 312 10*3/uL (140-440); RBC 4.42 10*6/uL (4.10-5.20)
[2025-02-09] MEDS: KETOROLAC 15 MG/ML 1 ML VIAL IVP STA (17:46)
[2025-02-09] MEDS: SODIUM CHLORIDE 0.9% 1,000 ML IV ONE (17:46)
[2025-02-09] MEDS: ONDANSETRON 4 MG/2 ML VIAL IVP STA (17:46)
[2025-02-09 17:49] LABS: Appearance,Urine Cloudy (Clear); Bacteria,Urine Rare /hpf; Bilirubin,Urine Negative (Negative); Blood,Urine Negative (Negative); Color,Urine Light Yellow; Glucose,Urine (UA) Negative (Negative); Ketones,Urine Negative (Negative); Leukocyte Esterase,Urine Negative (Negative); Mucus,Urine Occasional /hpf; Nitrite,Urine Negative (Negative); PH, Urine 5.5 (5.0-8.0); Protein,Urine Negative (Negative); RBC,Urine 3 /hpf (0-5); Specific Gravity,Urine 1.014 (1.001-1.035); Squamous Epithelial Cell,Urine 8 /hpf (0-4); Urobilinogen,Urine <2.0 mg/dL (<2.0); WBC,Urine 1 /hpf (0-5)
[2025-02-09 17:53] LABS: INR 0.9 (<1.2); Partial Thromboplastin Time 22.7 sec (22.0-30.0); Prothrombin Time 10.3 sec (10.0-12.5)
[2025-02-09 17:55] LABS: ALT 40 U/L (4-34); AST 27 U/L (14-36); African American GFR (CKD) 80 (>60 ml/min/1.73 sqM); Albumin 4.2 g/dL (3.5-5.0); Alkaline Phosphatase 56 U/L (38-126); Amylase 49 U/L (30-110); Anion Gap 10 mmol/L; Blood Urea Nitrogen 13 mg/dL (7-17); Calcium 9.5 mg/dL (8.4-10.2); Carbon Dioxide 24 mmol/L (22-30); Chloride 107 mmol/L (98-107); Glucose 137 mg/dL (74-99); Lipase 103 U/L (23-300); Non-African American GFR(CKD) 69 (>60 ml/min/1.73 sqM); Potassium 3.6 mmol/L (3.5-5.1); Sodium 141 mmol/L (137-145); Total Bilirubin 0.5 mg/dL (0.2-1.3); Total Protein 6.9 g/dL (6.3-8.2)
--- NOTE | 2025-02-09 18:58 | CT ---
EXAMINATION TYPE: CT abdomen pelvis w con CT DLP: 622.9 mGycm, Automated exposure control for dose reduction was used. DATE OF EXAM: 02/09/2025 6:44 PM COMPARISON: Abdominal ultrasound 02/04/2025, CT abdomen and pelvis 06/15/2022, 07/13/2021, 06/23/2020 CLINICAL INDICATION:Female, 44 years old with history of abdominal pain; abdominal pain, mostly right side x 3 weeks TECHNIQUE: Standard CT of the abdomen and pelvis following the administration of 100 cc of Isovue 3 00 IV contrast material. Coronal and sagittal reformats were performed. FINDINGS: LOWER CHEST: Minimal posterior dependent subsegmental atelectasis is noted. ABDOMEN LIVER: Subcentimeter peripheral hepatic lobe right simple appearing cyst. Spinal caudate lobe 1.3 cm simple appearing cyst. These are both stable from prior examination and considered benign. [place] cory l morphology. GALLBLADDER AND BILE DUCTS: Unremarkable. PANCREAS: Unremarkable. SPLEEN: Unremarkable. ADRENAL GLANDS: Unremarkable. KIDNEYS AND URETERS: No evidence of hydronephrosis or renal calculus. The kidneys enhance symmetrical ly. Contrast is demonstrated within both collecting systems and proximal ureters on the delayed phase . PELVIS BLADDER: Incompletely distended but grossly unremarkable. REPRODUCTIVE: The uterus is surgically absent. Stable right ovarian dominant follicular cyst measurin g 2 cm. Considered benign. ABDOMEN & PELVIS STOMACH AND BOWEL: Stomach and duodenum are unremarkable. No focal bowel wall thickening or surroundi ng inflammatory changes. The appendix is surgically absent. No evidence of bowel obstruction. PERITONEUM: No evidence of pneumoperitoneum or free fluid. VASCULATURE: No evidence of aortic aneurysm. Several pelvic phleboliths. MUSCULOSKELETAL: No acute osseous abnormalities LYMPH NODES: No gross evidence for lymphadenopathy. SOFT TISSUE/ABDOMINAL WALL: Small fat filled umbilical hernia. IMPRESSION: No CT evidence for acute abdominal/pelvic process. [facility], , 02/09/2025 6:56 PM
[2025-02-09 19:05] VITALS: BP 108/76; PULSE 69; RESP 16
--- NOTE | 2025-02-09 19:11 | ED ---
Abdominal Pain HPI - General Chief Complaint: Abdominal Pain Stated Complaint: Abd pain Time Seen by Provider: 02/09/25 16:50 Source: patient Mode of arrival: ambulatory Limitations: no limitations - History of Present Illness Initial Comments: 44-year-old female presenting with chief complaint of abdominal pain. Patient has had ongoing right upper quadrant pain for a few weeks now. States that it feels like gas pain/pressure. It is worse after she eats. She states that she has constant nausea, no vomiting. She reports that she is lost 16 pounds in the past few weeks because of this pain and decreased appetite. She had an ultrasound earlier this month that showed no evidence of stones or cholecystitis, her PCP recommended that HIDA scan and she has been waiting for insurance approval for the study. No fever. She does get some radiation of the right upper quadrant pain into her chest at times. She admits to constipation. No hematochezia or melena. Surgical history includes hysterectomy, appendectomy, bladder suspension. - Related Data Home Medications Medication Instructions Recorded Confirmed Topiramate [Topamax] 100 mg PO HS 06/30/18 06/23/20 Aimovig (Unknown Strength) 1 dose SQ Q28D 06/23/20 06/23/20 DULoxetine HCL [Cymbalta] 60 mg PO HS 06/23/20 06/23/20 Eletriptan [Relpax] 40 mg PO DAILY PRN 06/23/20 06/23/20 Gabapentin [Neurontin] 100 mg PO HS 06/23/20 06/23/20 Ibuprofen [Motrin Ib] 400 mg PO ONCE PRN 06/23/20 06/23/20 Ondansetron Odt [Zofran ODT] 4 mg PO DAILY PRN 06/23/20 06/23/20 Previous Rx's Medication Instructions Recorded Ketorolac [Toradol] 10 mg PO Q6HR PRN #10 tab 02/09/25 Ondansetron Odt [Zofran Odt] 4 mg PO Q8HR PRN #20 tab 02/09/25 Allergies Allergy/AdvReac Type Severity Reaction Status Date / Time Penicillins Allergy Rash/Hives Verified 02/09/25 16:42 Sulfa (Sulfonamide Allergy Rash/Hives Verified 02/09/25 16:42 Antibiotics) codeine AdvReac Vomiting Verified 02/09/25 16:42 Review of Systems ROS Statement: Those systems with pertinent positive or pertinent negative responses have been documented in the HPI. ROS Other: All systems not noted in ROS Statement are negative. Past Medical History Past Medical History: Asthma, Hyperlipidemia Additional Past Medical History / Comment(s): perforin, migraines History of Any Multi-Drug Resistant Organisms: None Reported Past Surgical History: Adenoidectomy, Appendectomy, Breast Surgery, Hysterectomy, Orthopedic Surgery, Tonsillectomy Additional Past Surgical History / Comment(s): sinus surgery Past Psychological History: Anxiety Smoking Status: Never smoker Past Alcohol Use History: None Reported Past Drug Use History: None Reported General Exam Limitations: no limitations General appearance: alert, in no apparent distress Head exam: Present: atraumatic, normocephalic, normal inspection Eye exam: Present: normal appearance, EOMI Neck exam: Present: normal inspection. Absent: meningismus Respiratory exam: Present: normal lung sounds bilaterally. Absent: respiratory distress, wheezes, rales, rhonchi, stridor Cardiovascular Exam: Present: regular rate, normal rhythm, normal heart sounds. Absent: systolic murmur, diastolic murmur, rubs, gallop, clicks GI/Abdominal exam: Present: soft, tenderness, guarding. Absent: distended, rebound, rigid Neurological exam: Present: alert, oriented X3 Psychiatric exam: Present: normal affect, normal mood Skin exam: Present: warm, dry, normal color Course Vital Signs 02/09/25 02/09/25 16:37 19:00 Temperature 98.0 F Pulse Rate 94 69 Respiratory 22 16 Rate Blood Pressure 100/63 108/76 O2 Sat by Pulse 98 100 Oximetry Medical Decision Making - Medical Decision Making Was pt. sent in by a medical professional or institution (, PA, APPEALS RN, urgent care, hospital, or jail...) When possible be specific @ -No Did you speak to anyone other than the patient for history (EMS, parent, family, police, friend...)? What history was obtained from this source @ -No Did you review nursing and triage notes (agree or disagree)? Why? @ -I reviewed and agree with nursing and triage notes Were old charts reviewed (outside hosp., previous admission, EMS record, old EKG, old radiological studies, urgent care reports/EKG's, jail records)? Report findings @ -No old charts were reviewed Differential Diagnosis (chest pain, altered mental status, abdominal pain women, abdominal pain men, vaginal bleeding, weakness, fever, dyspnea, syncope, headache, dizziness, GI bleed, back pain, seizure, CVA, palpatations, mental health, musculoskeletal)? @ -MDM Differential Abdominal Pain Women: Appendicitis, Cholecystitis, diverticulosis, ischemic bowel, pancreatitis, hepatitis, UTI, gastroenteritis, AAA, incarcerated hernia, bowel obstruction, constipation, inflammatory bowel, hepatitis, peptic ulcer disease, splenic infarction, perforated viscus, vulvitis, ovarian torsion, PID, kidney stone, placenta abruption... This is not meant to be an all-inclusive list EKG interpreted by me (3pts min.). @ -EKG shows sinus rhythm ventricular rate 67. UT interval 137. QRS 97. QT 401. QTc 417 X-rays interpreted by me (1pt min.). @ -None done CT interpreted by me (1pt min.). @ -CT shows no evidence for acute abdominal/pelvic process U/S interpreted by me (1pt. min.). @ -None done What testing was considered but not performed or refused? (CT, X-rays, U/S, labs)? Why? @ -None What meds were considered but not given or refused? Why? @ -None Did you discuss the management of the patient with other professionals (professionals i.e. , PA, APPEALS RN, lab, RT, psych nurse, web content & social media manager, money counter, teacher, press officer, case management assistant)? Give summary @ -No Was smoking cessation discussed for >3mins.? @ -No Was critical care preformed (if so, how long)? @ -No Were there social determinants of health that impacted care today? How? (Homelessness, low income, unemployed, alcoholism, drug addiction, transportation, low edu. Level, literacy, decrease access to med. care, penitentiary, rehab)? @ -No Was there de-escalation of care discussed even if they declined (Discuss DNR or withdrawal of care, Hospice)? DNR status @ -No What co-morbidities impacted this encounter? (DM, HTN, Smoking, COPD, CAD, Cancer, CVA, ARF, Chemo, Hep., AIDS, mental health diagnosis, sleep apnea, morbid obesity)? @ -None Was patient admitted / discharged? Hospital course, mention meds given and route, prescriptions, significant lab abnormalities, going to OR and other pertinent info. @ -44-year-old female presenting with chief complaint of right upper quadrant pain that has been ongoing for few weeks. History and physical examination are conducted. Lab work shows no leukocytosis or anemia. ALT 40 AST is WNL. Negative troponin and EKG shows no ST deviation. Lipase is WNL. Urine shows no infectious process. CT shows no acute process. On reassessment patient reports improvement in her symptoms. She is educated on today's findings. She is advised to still get her HIDA scan that her PCP ordered outpatient, she is provided with referral to general surgery. Follow-up with PCP. Report back to ER with any new or worsening symptoms. Discussed return parameters and answered all questions. Patient conveyed verbal understanding and agreed to the plan. I discussed this case in detail with my attending Dr. Ness Undiagnosed new problem with uncertain prognosis? @ -No Drug Therapy requiring intensive monitoring for toxicity (Heparin, Nitro, Insulin, Cardizem)? @ -No Were any procedures done? @ -No Diagnosis/symptom? @ -Right upper quadrant pain Acute, or Chronic, or Acute on Chronic? @ -Acute Uncomplicated (without systemic symptoms) or Complicated (systemic symptoms)? @ -Uncomplicated Side effects of treatment? @ -No Exacerbation, Progression, or Severe Exacerbation? @ -No Poses a threat to life or bodily function? How? (Chest pain, [place], [place], pneumonia, PE, COPD, DKA, ARF, appy, cholecystitis, CVA, Diverticulitis, Homicidal, Suicidal, threat to staff... and all critical care pts) @ -Unlikely - Lab Data Result diagrams: 02/09/25 17:27 02/09/25 17:27 Lab Results 02/09/25 02/09/25 02/09/25 Range/Units 17:27 17:27 17:27 WBC 7.60 (4.50-10.00) 10*3/uL RBC 4.42 (4.10-5.20) 10*6/uL Hgb 13.7 (12.0-15.0) g/dL Hct 39.4 (37.2-46.3) % MCV 89.1 (80.0-97.0) fL MCH 31.0 (27.0-32.0) pg MCHC 34.8 (32.0-37.0) g/dL Plt Count 312 (140-440) 10*3/uL MPV 10.4 (9.5-12.2) fL Immature Gran % (Auto) 0.3 % Neutrophils % 67.8 % Lymphocytes % 21.7 % Monocytes % 5.8 % Eosinophils % 3.6 % Basophils % 0.8 % Immature Gran # 0.02 (0.00-0.04) 10*3/uL Neutrophils # 5.16 (1.80-7.70) 10*3/uL Lymphocytes # 1.65 (0.90-5.00) 10*3/uL Monocytes # 0.44 (0.20-1.00) 10*3/uL Eosinophils # 0.27 (0.04-0.35) 10*3/uL Basophils # 0.06 (0.00-0.10) 10*3/uL PT 10.3 (10.0-12.5) sec INR 0.9 (<1.2) APTT 22.7 (22.0-30.0) sec Sodium (137-145) mmol/L Potassium (3.5-5.1) mmol/L Chloride (98-107) mmol/L Carbon Dioxide (22-30) mmol/L Anion Gap mmol/L BUN (7-17) mg/dL Creatinine (0.52-1.04) mg/dL Est GFR (CKD-EPI)AfAm (>60 ml/min/1.73 sqM) Est GFR (CKD-EPI)NonAf (>60 ml/min/1.73 sqM) Glucose (74-99) mg/dL Plasma Lactic Acid Nicholas (0.7-2.0) mmol/L Calcium (8.4-10.2) mg/dL Total Bilirubin (0.2-1.3) mg/dL AST (14-36) U/L ALT (4-34) U/L Alkaline Phosphatase (38-126) U/L Troponin I (0.000-0.034) ng/mL Total Protein (6.3-8.2) g/dL Albumin (3.5-5.0) g/dL Amylase (30-110) U/L Lipase (23-300) U/L Urine Color Light Yellow Urine Appearance Cloudy H (Clear) Urine pH 5.5 (5.0-8.0) Ur Specific [place] 1.014 (1.001-1.035) Urine Protein Negative (Negative) Urine Glucose (UA) Negative (Negative) Urine Ketones Negative (Negative) Urine Blood Negative (Negative) Urine Nitrite Negative (Negative) Urine Bilirubin Negative (Negative) Urine Urobilinogen <2.0 (<2.0) mg/dL Ur Leukocyte Esterase Negative (Negative) Urine RBC 3 (0-5) /hpf Urine WBC 1 (0-5) /hpf Ur Squamous Epith Cells 8 H (0-4) /hpf Urine Bacteria Rare H (None) /hpf Urine Mucus Occasional H (None) /hpf 02/09/25 02/09/25 02/09/25 Range/Units 17:27 17:27 17:27 WBC (4.50-10.00) 10*3/uL RBC (4.10-5.20) 10*6/uL Hgb (12.0-15.0) g/dL Hct (37.2-46.3) % MCV (80.0-97.0) fL MCH (27.0-32.0) pg MCHC (32.0-37.0) g/dL Plt Count (140-440) 10*3/uL MPV (9.5-12.2) fL Immature Gran % (Auto) % Neutrophils % % Lymphocytes % % Monocytes % % Eosinophils % % Basophils % % Immature Gran # (0.00-0.04) 10*3/uL Neutrophils # (1.80-7.70) 10*3/uL Lymphocytes # (0.90-5.00) 10*3/uL Monocytes # (0.20-1.00) 10*3/uL Eosinophils # (0.04-0.35) 10*3/uL Basophils # (0.00-0.10) 10*3/uL PT (10.0-12.5) sec INR (<1.2) APTT (22.0-30.0) sec Sodium 141 (137-145) mmol/L Potassium 3.6 (3.5-5.1) mmol/L Chloride 107 (98-107) mmol/L Carbon Dioxide 24 (22-30) mmol/L Anion Gap 10 mmol/L BUN 13 (7-17) mg/dL Creatinine 0.99 (0.52-1.04) mg/dL Est GFR (CKD-EPI)AfAm 80 (>60 ml/min/1.73 sqM) Est GFR (CKD-EPI)NonAf 69 (>60 ml/min/1.73 sqM) Glucose 137 H (74-99) mg/dL Plasma Lactic Acid Nicholas 1.7 (0.7-2.0) mmol/L Calcium 9.5 (8.4-10.2) mg/dL Total Bilirubin 0.5 (0.2-1.3) mg/dL AST 27 (14-36) U/L ALT 40 H (4-34) U/L Alkaline Phosphatase 56 (38-126) U/L Troponin I <0.012 (0.000-0.034) ng/mL Total Protein 6.9 (6.3-8.2) g/dL Albumin 4.2 (3.5-5.0) g/dL Amylase 49 (30-110) U/L Lipase 103 (23-300) U/L Urine Color Urine Appearance (Clear) Urine pH (5.0-8.0) Ur Specific [place] (1.001-1.035) Urine Protein (Negative) Urine Glucose (UA) (Negative) Urine Ketones (Negative) Urine Blood (Negative) Urine Nitrite (Negative) Urine Bilirubin (Negative) Urine Urobilinogen (<2.0) mg/dL Ur Leukocyte Esterase (Negative) Urine RBC (0-5) /hpf Urine WBC (0-5) /hpf Ur Squamous Epith Cells (0-4) /hpf Urine Bacteria (None) /hpf Urine Mucus (None) /hpf Disposition Clinical Impression: Right upper quadrant abdominal pain Disposition: HOME SELF-CARE Condition: Fair Instructions (If sedation given, give patient instructions): Abdominal Pain (ED) Additional Instructions: Follow-up with PCP and general surgery. Report back to ER with any new or worsening symptoms. Prescriptions: Ketorolac [Toradol] 10 mg PO Q6HR PRN #10 tab PRN Reason: Pain Ondansetron Odt [Zofran Odt] 4 mg PO Q8HR PRN #20 tab PRN Reason: Nausea Is patient prescribed a controlled substance at d/c from ED?: No Referrals: Saira Lugo MD [Primary Care Provider] - 1-2 days Richmond Rider MD [Medical Doctor] - 1-2 days Tico Crooks DO [Doctor of Osteopathic Medicine] - 1-2 days Time of Disposition: 19:28
== END 2025-02-09 19:46 | disposition home or self-care (01) ==
LOC: EC 16:34
DX: R10.11 Right upper quadrant pain (principal); Z88.0 Allergy status to penicillin; Z88.2 Allergy status to sulfonamides; Z88.5 Allergy status to narcotic agent
CPT/HCPCS: 36415; 93005; 80053; 82150; 83605; 83690; 84484; 85025; 85610; 85730; 81001; 74177; 99284; 96374; 96375; 96361 ×2; J2405; J1885; Q9967

== ENCOUNTER 2025-02-16 11:15 | Day surgery (SDC) | payer BC ==
[2025-02-12 12:37] VITALS: BMI 23.5
[~2025-02-16 11:15] MED LIST: LIDOCAINE 1% (10MG/ML) FOR IV START INTRADERMA PRN; ONDANSETRON 4 MG/2 ML VIAL IVP PRN
[2025-02-16 13:25] VITALS: RESP 16; TEMP 98.2
[2025-02-16] MEDS: IV FLUID CONTINUATION 1,000 ML IV ONE (13:44)
[2025-02-16] MEDS: LACTATED RINGERS 1,000 ML IV SCH (13:45)
[2025-02-16] MEDS ORDERED: LIDOCAINE 1% INJ 10MG/ML (20 ML MDV) ONE (13:55)
[2025-02-16] MEDS ORDERED: PROPOFOL 10 MG/ML 20 ML VIAL IV ONE (13:55)
--- NOTE | 2025-02-16 14:38 | P.PCN ---
Date of Procedure: 02/16/25 Procedure(s) Performed: PREOPERATIVE DIAGNOSIS: Abdominal pain, change in bowel habits POSTOPERATIVE DIAGNOSIS: Mild gastritis, small hiatal hernia, normal colon PROCEDURE: 1. EGD with biopsy 2. Colonoscopy with biopsy [place] [facility] [place]: Rcihmond Rider M.D. SPECIMENS: Duodenum, antrum, colon random ENDOSCOPIC PROCEDURE: The patient was on the endoscopy table in the left decubitus position. The Olympus gastroscope was inserted into the oropharynx and passed under direct visualization to the region of the third portion of the duodenum. From that point the scope was slowly withdrawn inspecting all surfaces carefully. There were no neoplastic inflammatory or polypoid lesions throughout the duodenum. A biopsy of the duodenum took place to evaluate for celiac disease. The pylorus was widely patent. The stomach was carefully inspected. There was mild gastritis present. A biopsy of the antrum took place to rule out H. pylori. Retroflexion revealed a small 1 cm hiatal hernia. The esophagus was then carefully examined. There were no neoplastic inflammatory or polypoid lesions throughout the visualized esophagus. The patient was kept on the endoscopy table in the left decubitus position. The Olympus colonoscope was inserted into the anus and passed under direct visualization to the base of the cecum. The appendiceal orifice was visualized. From that point the scope was slowly withdrawn inspecting all surfaces carefully. There were no neoplastic inflammatory or polypoid lesions throughout the cecum, ascending, transverse, descending, sigmoid and rectum. A few small random biopsies were taken throughout the colon. There was no visible diverticulosis noted. Digital rectal examination was normal. The patient was taken to the recovery room in stable condition per anesthesia guidelines. RECOMMENDATIONS: Resume diet. Repeat colonoscopy 10 years. Consider GI consult if HIDA scan normal. Await HIDA scan later this week.
[2025-02-16 14:57] VITALS: BP 107/70; PULSE 65
== END 2025-02-16 15:21 | disposition home or self-care (01) ==
LOC: ORWHC2ENDO 11:15
PROVIDERS: ATTEND Surgery
DX: Z12.11 Encounter for screening for malignant neoplasm of colon (principal); K29.70 Gastritis, unspecified, without bleeding; K44.9 Diaphragmatic hernia without obstruction or gangrene; E78.00 Pure hypercholesterolemia, unspecified; M79.7 Fibromyalgia; J45.909 Unspecified asthma, uncomplicated; F41.9 Anxiety disorder, unspecified; G43.909 Migraine, unspecified, not intractable, without status migrainosus; F17.200 Nicotine dependence, unspecified, uncomplicated; Z79.899 Other long term (current) drug therapy; Z88.5 Allergy status to narcotic agent; Z88.0 Allergy status to penicillin; Z88.2 Allergy status to sulfonamides
CPT/HCPCS: 45380; 43239; J2003; J2704; 88305

== ENCOUNTER → 2025-02-18 | Outpatient (CLI) | payer BC ==
--- NOTE | 2025-02-18 15:04 | NM ---
EXAMINATION TYPE: NM hepatobiliary w CCK DATE OF EXAM: 02/18/2025 COMPARISON: CT abdomen and pelvis 9 days ago CLINICAL INDICATION: Female, 44 years old with history of R10.11 RUQ pain; epigastric pain with dimin ished appetite and nausea. TECHNIQUE: After the intravenous administration of 4.9 mCi Tc 99m Mebrofenin hepatobiliary scintigrap hy is performed. Immediate images post injection. FINDINGS: There is satisfactory initial accumulation of tracer by the liver. The gallbladder is visualized wit hin 30 minutes. The small bowel activity is noted within 25 minutes. At one hour CCK was administer ed, patient was injected with 1.25 mcg of Kinevac, and gallbladder ejection fraction is calculated at 90 %, not diminished from the normal range. Therefore there is no scintigraphic evidence of cystic or common bile duct obstruction to suggest acute cholecystitis or gallbladder hypokinesia. IMPRESSION: As above. [facility] Rere Smith, , 02/18/2025 3:02 PM
== END | disposition home or self-care (01) ==
LOC: RADNMMAIN 12:39
PROVIDERS: ATTEND Surgery
DX: R10.11 Right upper quadrant pain (principal)
CPT/HCPCS: 78227; A9537; J2805